=== PATIENT | female | born 1990 | race Caucasian/White ===

== ENCOUNTER 2017-08-01 14:59 | Emergency (ER) | payer MEDICAID, OTHER ==
[~2017-08-01] VITALS: Ht 162.6 cm; Wt 68.0 kg
[~2017-08-01 14:59] MED LIST: AMOX1TAB10 PO; HYDR-3498 PO; HYDR-762 PO; ZOF8 PO
[2017-08-01 15:02] VITALS: Ht 162.6 cm; Wt 68.0 kg
[2017-08-01] MEDS ORDERED: PENICILLIN G BENZ 2.4 MIL UNIT SYG IM STA (16:45)
[2017-08-01] MEDS ORDERED: ACET325T33 PO (16:47)
[2017-08-01 17:36] VITALS: TEMP 98.2
--- NOTE | 2017-08-01 18:48 | ERD ---
ER Documentation Chief Complaint Chief Complaint fever x 1 day , sore throat HPI 26-year-old female with history of bipolar disorder presents complaining of sore throat, tenderness in her neck and history of fever yesterday for 1 day. Patient denies any cough. She states that she took Tylenol this morning ROS All systems reviewed and are negative except as per history of present illness. Medications Home Meds Active Scripts Acetaminophen* (Tylenol*) 325 Mg Tablet, 2 TAB PO Q4 Y for PAIN AND OR ELEVATED TEMP, #30 TAB Prov:DIVINA ORTIZ PA-C 08/01/17 Hydrocodone Bit-Acetaminophen* ([place]*) 5-325 Mg Tab, 1 TAB PO Q6 Y for PAIN, # 14 TAB Prov:DORA HAMPTON PA-C 11/11/15 Ondansetron Hcl* (Zofran* ODT) 8 mg -ODT Tab.disper, 8 MG PO Q6 Y for NAUSEA AND /OR VOMITING, #10 TAB Prov:LINDSEY LEACH MD 11/09/15 Hydrocodone Bit-Acetaminophen* ([place]*) 10-325 Mg Tablet, 1 TAB PO Q4H Y for PAIN, #10 TAB Prov:LINDSEY LEACH MD 11/09/15 Amox Tr/Potassium Clavulanate (Amox Tr-K Clv 875-125 Mg Tab) 1 Tab Tablet, 1 TAB PO BID, #20 TAB Prov:LINDSEY LEACH MD 11/09/15 Allergies Allergies: Coded Allergies: No Known Drug Allergies (Verified Allergy, Unknown, 08/01/17) PMhx/Soc Medical and Surgical Hx: pt denies Medical Hx History of Surgery: Yes (GALL BLADDER) Anesthesia Reaction: No Hx Neurological Disorder: No Hx Respiratory Disorders: No Hx Cardiac Disorders: No Hx Psychiatric Problems: No Hx Miscellaneous Medical Probl: No Hx Alcohol Use: No Hx Substance Use: No Hx Tobacco Use: No Smoking Status: Never smoker Physical Exam Vitals Vital Signs Date Time Temp Pulse Resp B/P Pulse Ox O2 Delivery O2 Flow Rate FiO2 08/01/17 17:36 98.2 08/01/17 15:02 98.0 101 16 119/71 100 Physical Exam Const: Well-developed well-nourished no acute distress Head: Atraumatic Eyes: Normal Conjunctiva ENT: Normal External Ears, Nose Tympanic membranes bilateral clear Patient had erythema in her oropharynx with exudates on the tonsils Neck: Full range of motion..~ No meningismus. Resp: Clear to auscultation bilaterally Cardio: Regular rate and rhythm, no murmurs Abd: Soft, non tender, non distended. Normal bowel sounds Skin: No petechiae or rashes Back: No midline or flank tenderness Ext: No cyanosis, or edema Neur: Awake and alert Psych: Normal Mood and Affect Results 24 hrs Current Medications Medications (Trade) Dose Ordered Sig/Marek Route PRN Reason Start Time Stop Time Status Last Admin Dose Admin Penicillin G Benzathine (Bicillin La) 2,400,000 units ONCE STAT IM 08/01/17 16:45 08/01/17 16:46 DC 08/01/17 17:06 Procedures/MDM This is a 18-year-old female presenting to the emergency department with pharyngitis, differentials include strep pharyngitis versus viral pharyngitis. Patient had 4 out of 4 Cent[facility] criteria therefore she was treated for strep pharyngitis in the ED with penicillin IM. Patient had no evidence of peritonsillar abscess, retropharyngeal abscess. Airway is intact and she stable to be discharged home with return precautions. Prescription for Tylenol was provided Departure Diagnosis: Primary Impression: Pharyngitis Condition: Stable Patient Instructions: Uri, Viral, No Abx (Adult) Additional Instructions: FOLLOW UP WITH YOUR PRIMARY CARE PHYSICIAN TOMORROW.Return to this facility if you are not improving as expected. Take all medicines as directed. Return to this facility if you are not improving as expected. DIVINA ORTIZ PA-C Aug 01, 2017 18:48
== END 2017-08-01 17:38 | disposition home or self-care (01) ==
LOC: FTE 14:59
DX: J02.9 Acute pharyngitis, unspecified (principal)
CPT/HCPCS: 96372; J0561; Z7502